=== PATIENT | female | born 2000 | race Hispanic/Latino ===

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

== ENCOUNTER 2022-12-07 11:18 | Emergency (ER) | payer OTHER, SELFPAY ==
--- OUTSIDE RECORDS SUMMARY | 2022-12-07 11:30 | XMS REPORT | Continuity of Care Document ---
:2000 Author Organization [facility] t Address [address] [place] [address] [place] [id number] Care Team Providers Name Role Phone Unavailable Unavailable Unavailable Problems This patient has no known problems. Allergies, Adverse Reactions, Alerts This patient has no known allergies or adverse reactions. Medications This patient has no known medications. Procedures This patient has no known procedures. Encounters Start End Encounter Admission Attending Care Care Encounter Source Date/Time Date/Time Type Type Clinicians Facility Department ID 2022-08-06 2022-08-06 Outpatient [facility] [id number] Arvin 13:53:19 13:53:19 [id number] F Allen 2022-05-04 2022-05-04 Outpatient [facility] [id number] Arvin 13:40:16 13:40:16 [id number] F Allen Results This patient has no known results.
[2022-12-07] MEDS ORDERED: NA CHLORIDE 0.9% 1,000 ML ONE (11:43)
[2022-12-07 11:45] LABS: Urine Bacteria <20 /HPF (<20); Urine Bilirubin NEGATIVE (Negative); Urine Blood Negative (Negative); Urine Clarity Turbid (Clear); Urine Color Light-Yellow (Yellow); Urine Glucose TRACE (Negative); Urine Mucus Slight /HPF (None Seen); Urine Protein NEGATIVE (Negative); Urine RBC <5 /HPF (None Seen); Urine Urobilinogen Normal (Normal)
[2022-12-07 11:53] LABS: Absolute Lymphocytes (CBC) 3.4 K/uL (0.7-4.9); Hematocrit 39.2 % (36.0-45.0); Lymphocytes % 36.5 % (15.3-44.8); MCV 87.1 fL (80-100); MPV 8.6 fL (7.6-11.3)
[2022-12-07 12:08] LABS: Albumin 3.7 g/dL (3.4-5.0); Bilirubin Total 0.2 mg/dL (0.2-1.0); Potassium 3.6 mEq/L (3.5-5.1); Protein, Total 7.3 g/dL (6.4-8.2)
--- NOTE | 2022-12-07 13:01 | RAD REPORT ---
EXAM DESCRIPTION: CT - Abdomen Pelvis W Contrast - 12/07/2022 12:16 pm CLINICAL HISTORY: ABD PAIN COMPARISON: No comparisons TECHNIQUE: Thin cut axial CT imaging of the abdomen and pelvis was performed following intravenous a dministration of 95 mL Isovue 300. Multiplanar reformats were generated and reviewed. All CT scans are performed using dose optimization technique as appropriate and may include automated exposure control or mA/KV adjustment according to patient size. FINDINGS: No suspicious findings in the lung bases. The liver, spleen, and pancreas show no suspicious findings. Gallbladder is suboptimally distended li miting evaluation. No evidence of intra or extrahepatic biliary ductal dilation. Symmetric renal function is seen with no hydronephrosis or suspicious renal mass. No dilated bowel loops or bowel wall thickening. No free air, or inflammatory stranding. No hernia, m ass or bulky lymphadenopathy. The urinary bladder is without significant finding. Lobulated cystic lesion in the left adnexal region, with marginal enhancement, measuring 4.6 x 4.6 x 3.4 centimeter in greatest transverse, craniocaudal, and AP dimensions. The right ovary is normal in size. Mild free pelvic fluid. Abnormal orientation of the IUD, relative to the plane of the endometri al cavity, likely with extension of its posterior on along the posterior mid to lower wall myometrium . Ovoid cyst along the left lower aspect of the introitus measuring 2.7 x 1.8 centimeter, without sig nificant adjacent inflammatory changes. No suspicious bony findings. IMPRESSION: Lobulated cystic 4.6 centimeter left adnexal lesion, may relate to a ruptured dominant c yst or follicle. Mild free pelvic fluid. Abnormal orientation of the IUD relative to the plane of the endometrium, with appearance of extensio n of the right arm into the posterior myometrium. The significance of this finding is unclear. Please correlate clinically. Left lower introitus 2.7 centimeter cyst, suggestive of a Bartholin's gland cyst. No other acute intra-abdominal process. The findings were communicated to Reilly Ramon on 12/07/2022 at 12:51 hours.
--- NOTE | 2022-12-07 13:05 | ER ---
Nurse's Notes [facility] Name: Kaykay Rivera Age: 21 yrs Sex: Female : 2000 Arrival Date: 12/07/2022 Time: 11:18 Bed 5 Private MD: Diagnosis: Other ovarian cysts-with rupture Presentation: 12/07 11:29 Chief complaint: Abdominal pain and N/D x 2 days. Coronavirus screen: At this time, the hb client does not indicate any symptoms associated with coronavirus-19. Ebola Screen: No symptoms or risks identified at this time. Initial Sepsis Screen: Does the patient meet any 2 criteria? No. Patient's initial sepsis screen is negative. Does the patient have a suspected source of infection? No. Patient's initial sepsis screen is negative. Risk Assessment: Do you want to hurt yourself or someone else? Patient reports no desire to harm self or others. Onset of symptoms was December 06, 2022. 11:29 Method Of Arrival: Ambulatory 11:29 Acuity: JONAH 3 hb Historical: - Allergies: 11:30 No Known Allergies; hb - Home Meds: 11:30 None [Active]; hb - PMHx: 11:30 None; hb - PSHx: 11:30 None; hb - Immunization history:: Adult Immunizations up to date. - Social history:: Smoking status: Patient denies any tobacco usage or history of. - Family history:: not pertinent. - Hospitalizations: : No recent hospitalization is reported. Screenin:31 [facility] ED Fall Risk Assessment (Adult) Score/Fall Risk Level 0 - 2 = Low Risk hb Oriented to surroundings, Maintained a safe environment. Abuse screen: Denies threats or abuse. Denies injuries from another. Nutritional screening: No deficits noted. Tuberculosis screening: No symptoms or risk factors identified. Assessment: 11:30 General: Appears in no apparent distress. uncomfortable, Behavior is calm, cooperative, ko1 appropriate for age. Pain: Complains of pain in abdomen. Neuro: No deficits noted. Cardiovascular: No deficits noted. Respiratory: No deficits noted. GI: Bowel sounds present X 4 quads. Abd is soft and non tender X 4 quads. : No deficits noted. EENT: No deficits noted. Derm: No deficits noted. Musculoskeletal: No deficits noted. Vital Signs: 11:29 BP 130 / 98; Pulse 101; Resp 16; Temp 98.3(O); Pulse Ox 100% on R/A; Weight 72.57 kg; hb Height 5 ft. 4 in. ; Pain 3/10; 13:14 BP 112 / 83; Pulse 92; Resp 16; Pulse Ox 99% ; ko1 11:29 Body Mass Index 27.46 (72.57 kg, 162.56 cm) hb 11:29 Pain Scale: Adult hb ED Course: 11:19 Patient arrived in ED. ts1 11:21 Reilly Ramon MD is Attending Physician. rn 11:27 Anna Kaur, TATE is Primary Nurse. ko1 11:30 Triage completed. hb 11:30 Inserted saline lock: 20 gauge in left antecubital area, using aseptic technique. Blood ko1 collected. 11:31 Arm band placed on. hb 11:31 Patient has correct armband on for positive identification. hb 11:39 Pulse ox on. NIBP on. mm9 11:39 Urine collected: clean catch specimen, cloudy. mm9 11:40 Urinalysis w/ reflexes Sent. mm9 11:40 Test, Urine Sent. mm9 11:46 CBC with Diff Sent. ko1 11:46 CMP Sent. ko1 11:46 Lipase Sent. ko1 12:18 CT Abd/Pelvis - IV Contrast Only In Process Unspecified. EDMS 13:14 No provider procedures requiring assistance completed. IV discontinued, intact, ko1 bleeding controlled, No redness/swelling at site. Pressure dressing applied. Administered Medications: 11:46 Drug: NS 0.9% IV 1000 ml Route: IV; Rate: 1 bolus; Site: left antecubital; ko1 13:16 Follow up: Response: No adverse reaction; IV Status: Completed infusion; IV Intake: ph 1000ml Medication: 11:31 VIS not applicable for this client. hb Intake: 13:16 IV: 1000ml; Total: 1000ml. ph Outcome: 13:05 Discharge ordered by . rn 13:15 Discharged to home ambulatory, with family. ph 13:15 Condition: good 13:15 Discharge instructions given to patient, Instructed on discharge instructions, follow up and referral plans. medication usage, Demonstrated understanding of instructions, follow-up care, medications, Prescriptions given X 1. 13:16 Patient left the ED. ph Signatures: Dispatcher [employer] EDMS Reilly Ramon MD MD rn Vesta Garcia RN RN ph Amelia Brannon, TATE RN Anna Kaur RN RN rae1 Dorothy King 9 Veronika Baird PAS [facility]
--- NOTE | 2022-12-07 13:06 | EDPHYS ---
Physician Documentation [facility] Name: Kaykay Rivera Age: 21 yrs Sex: Female : 2000 Arrival Date: 12/07/2022 Time: 11:18 Bed 5 Private MD: ED Physician Reilly Ramon HPI: 12/07 11:36 This 21 yrs old Female presents to ER via Ambulatory with complaints of rn Abdominal Pain. 11:36 The patient presents with abdominal pain that is diffuse. Onset: The symptoms/episode rn began/occurred yesterday. The symptoms do not radiate. Associated signs and symptoms: Pertinent positives: diarrhea, Pertinent negatives: fever, hematuria, vaginal discharge, vomiting, vomiting blood. The symptoms are described as crampy, intermittent. Modifying factors: The symptoms are alleviated by nothing, the symptoms are aggravated by nothing. Severity of pain: At its worst the pain was moderate in the emergency department the pain has improved. The patient has not experienced similar symptoms in the past. The patient has not recently seen a physician. Historical: - Allergies: 11:30 No Known Allergies; hb - Home Meds: 11:30 None [Active]; hb - PMHx: 11:30 None; hb - PSHx: 11:30 None; hb - Immunization history:: Adult Immunizations up to date. - Social history:: Smoking status: Patient denies any tobacco usage or history of. - Family history:: not pertinent. - Hospitalizations: : No recent hospitalization is reported. ROS: 11:36 Constitutional: Negative for fever, chills, and weight loss, Cardiovascular: Negative rn for chest pain, palpitations, and edema, Respiratory: Negative for shortness of breath, cough, wheezing, and pleuritic chest pain, Abdomen/GI: + abd pain and diarrhea Back: Negative for injury and pain, : + dysuria MS/Extremity: Negative for injury and deformity, Skin: Negative for injury, rash, and discoloration, Neuro: Negative for headache, weakness, numbness, tingling, and seizure. Exam: 11:36 Constitutional: This is a well developed, well nourished patient who is awake, alert, rn and in no acute distress. Cardiovascular: Tachycardic, regular. No pulse deficits. Respiratory: No increased work of breathing, no retractions or nasal flaring. Abdomen/GI: Soft, non-tender Back: No spinal tenderness. No costovertebral tenderness. Full range of motion. Skin: Warm, dry MS/ Extremity: Pulses equal, no cyanosis. Neuro: Awake and alert, GCS 15 Vital Signs: 11:29 BP 130 / 98; Pulse 101; Resp 16; Temp 98.3(O); Pulse Ox 100% on R/A; Weight 72.57 kg; hb Height 5 ft. 4 in. ; Pain 3/10; 13:14 BP 112 / 83; Pulse 92; Resp 16; Pulse Ox 99% ; ko1 11:29 Body Mass Index 27.46 (72.57 kg, 162.56 cm) hb 11:29 Pain Scale: Adult hb MDM: 11:21 Patient medically screened. rn 13:03 Differential diagnosis: appendicitis, diverticulitis, Endometriosis, non-specific abd rn pain, Ureterolithiasis, urinary tract infection, ovarian cyst, ruptured cyst. Data reviewed: vital signs, nurses notes, lab test result(s), radiologic studies, CT scan, and as a result, I will discharge patient. Counseling: I had a detailed discussion with the patient and/or guardian regarding: the historical points, exam findings, and any diagnostic results supporting the discharge/admit diagnosis, lab results, radiology results, the need for outpatient follow up, to return to the emergency department if symptoms worsen or persist or if there are any questions or concerns that arise at home. Special discussion: I discussed with the patient/guardian in detail that at this point there is no indication for admission to the hospital. It is understood, however, that if the symptoms persist or worsen the patient needs to return immediately for re-evaluation. Based on the history and exam findings, there is no indication for further emergent testing or inpatient evaluation. I discussed with the patient/guardian the need to see the OB Gyne specialist for further evaluation of the symptoms. 13:05 ED course: Pt also notified of malposition of IUD, she states will make appt for rn removal. . 12/07 11:30 Order name: CBC with Diff; Complete Time: 12:01 rn 12/07 11:30 Order name: CMP; Complete Time: 12:10 rn 12/07 11:30 Order name: Lipase; Complete Time: 12:10 rn 12/07 11:30 Order name: Test, Urine; Complete Time: 12: rn 12/07 11:30 Order name: Urinalysis w/ reflexes; Complete Time: 12:01 rn 12/07 11:30 Order name: CT Abd/Pelvis - IV Contrast Only; Complete Time: 13:03 rn 12/07 11:30 Order name: IV Saline Lock; Complete Time: 11:46 rn 12/07 11:30 Order name: Labs collected and sent; Complete Time: 11:46 rn Administered Medications: 11:46 Drug: NS 0.9% IV 1000 ml Route: IV; Rate: 1 bolus; Site: left antecubital; ko1 13:16 Follow up: Response: No adverse reaction; IV Status: Completed infusion; IV Intake: ph 1000ml Disposition Summary: 12/07/22 13:05 Discharge Ordered Location: Home rn Problem: new rn Symptoms: have improved rn Condition: Stable rn Diagnosis - Other ovarian cysts - with rupture rn Followup: rn - With: Private Physician - When: As needed - Reason: Recheck today's complaints, Re-evaluation by your physician Discharge Instructions: - Discharge Summary Sheet rn - Ovarian Cyst rn Forms: - Medication Reconciliation Form rn - Thank You Letter rn - Antibiotic design intern - Prescription Opioid Use rn - [email or web address] rn Prescriptions: - Diclofenac Sodium 75 mg Oral tablet,delayed release (DR/EC) - take 1 tablet by ORAL route 2 times per day; 20 tablet; Refills: 0, Product rn Selection Permitted Signatures: Dispatcher [employer] Reilly Rock MD MD rn Baxter, Heather RN Anna Vail RN RN Vesta Douglas RN ph
[2022-12-07 13:41] VITALS: TEMP 98.3
[2022-12-07 13:43] VITALS: BP 112/83; O2SAT 99
== END 2022-12-07 13:16 | disposition home or self-care (01) ==
LOC: ER 11:18
DX: N83.299 Other ovarian cyst, unspecified side (principal)
CPT/HCPCS: 36415; 74177; 80053; 81001; 81025; 83690; 85025; 96360; 99284; J7030; Q9967